=== PATIENT | female | born 1965 | race Caucasian/White ===

== ENCOUNTER → 2016-05-31 | Outpatient (CLI) | payer OTHER ==
--- NOTE | 2016-06-04 08:39 | MM ---
Reason for exam: screening (asymptomatic). Last mammogram was performed 1 year and 4 months ago. History: Patient has history of endometrial cancer at age 24. Benign US right guided mammotome of the right breast, December 22, 2007. Reduction of the left breast, 2002. Reduction of the right breast, 2002. Physical Findings: A clinical breast exam by your physician is recommended on an annual basis and results should be correlated with mammographic findings. MG 3D Screening Mammo W/Cad Bilateral CC and MLO view(s) were taken. Prior study comparison: February 06, 2015, bilateral MG screening mammo w CAD. There are scattered fibroglandular densities. Previous mammotome biopsy within the right breast. No significant changes when compared with prior studies. ASSESSMENT: Benign, BI-RAD 2 RECOMMENDATION: Routine screening mammogram of both breasts in 1 year.
== END | disposition home or self-care (01) ==
LOC: RADMAMWWP 17:02
PROVIDERS: ATTEND Family Medicine
DX: Z12.31 Encounter for screening mammogram for malignant neoplasm of breast (principal)
CPT/HCPCS: 77063; G0202

== ENCOUNTER → 2016-05-31 | Outpatient (CLI) | payer OTHER ==
--- NOTE | 2016-05-31 23:36 | MR ---
EXAMINATION TYPE: MR lumbar spine wo con DATE OF EXAM: 05/31/2016 7:24 PM COMPARISON: 01/03/2015 HISTORY: Pain x3 years TECHNIQUE: T1 and T2 axial and sagittal images of the lumbar spine are submitted. FINDINGS: There is no abnormal signal seen within the visualized spinal cord or paraspinal soft tissu es. 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 Subcentimeter right renal lesion noted for which ultrasound suggested. Vertebral body hemangioma T12 noted. At L1-2 there is no disc herniation or canal stenosis. No foraminal encroachment At L2-3 there is no disc herniation. Mild facet hypertrophy. No foraminal encroachment or canal steno sis. At L3-4 there is mild degenerative disc disease with mild to moderate hypertrophy of the facets and l igamentum flavum. No Canal stenosis. No foraminal encroachment At L4-5 there is moderate degenerative disc disease with hypertrophy of the ligamentum flavum and fac et joints. Broad-based disc protrusion greater paracentrally and laterally to the left results in mod erate canal stenosis. There is bilateral lateral recess stenosis. Mild right foraminal encroachment a nd moderate left foraminal encroachment At L5-S1 there is particularly the facet joints. Minimal central disc bulging with no canal stenosis or foraminal encroachment. No disc herniation. IMPRESSION: 1. Broad-based disc protrusion with hypertrophic changes L4-5 results in bilateral foraminal encroach ment greater on the left. 2. Multilevel facet arthropathy and mild degenerative disc disease with moderate changes at L4-5. 3. Subcentimeter right renal lesion does not appear compatible with simple cyst. Correlate with ultra sound.
== END | disposition home or self-care (01) ==
LOC: RADMRIMAIN 18:27
PROVIDERS: ATTEND Family Medicine
DX: M46.96 Unspecified inflammatory spondylopathy, lumbar region (principal); M51.26 Other intervertebral disc displacement, lumbar region; M51.36 Other intervertebral disc degeneration, lumbar region
CPT/HCPCS: 72148

== ENCOUNTER → 2016-07-01 | Outpatient (CLI) | payer OTHER ==
--- NOTE | 2016-07-02 11:33 | US ---
EXAMINATION TYPE: US kidneys/renal and bladder DATE OF EXAM: 07/01/2016 4:00 PM COMPARISON: MRI 05/31/2016 CLINICAL HISTORY: N28.89 disorders of kidney and ureter. Abnormal finding on MRI EXAM MEASUREMENTS: Right Kidney: 12.4 x 4.5 x 4.5 cm Left Kidney: 9.5 x 4.7 x 5.8 cm Right Kidney: took multiple images of right kidney trying to appreciate 8mm lesion seen on MRI but I am not able to reproduce it. Nothing solid or cystic seen. Left Kidney: wnl Bladder: wnl Bilateral Jets seen: yes There is no evidence for hydronephrosis at this point in time. No nephrolithiasis is seen. No adelita s are identified. The urinary bladder is anechoic. Bilateral ureteral jets are seen. reviewed MRI scan after initial renal survey and went back in to document more images of right arturo lfinal images may have an echogenic area within a slightly hypoechoic area midpole right kidney, ex ample image 38. IMPRESSION: Definite correlation with the abnormality identified on MRI is not evident on the current ultrasound. There is an area at the superior lateral area which potentially could be related but is not well-def ined. Recommend CT with contrast for additional evaluation.
== END | disposition home or self-care (01) ==
LOC: RADUSWWP 15:34
PROVIDERS: ATTEND Family Medicine
DX: N28.89 Other specified disorders of kidney and ureter (principal)
CPT/HCPCS: 76770

== ENCOUNTER → 2016-07-26 | Outpatient (CLI) | payer OTHER ==
[2016-07-25 15:57] VITALS: BMI 29.0
[2016-07-26 14:39] VITALS: BP 138/96; PULSE 81; RESP 16; TEMP 98.6
--- NOTE | 2016-07-26 15:20 | P.CONS ---
History of Present Illness - Reason for Consult Consult date: 07/26/16 - History of Present Illness This is 50 years female with a chronic history of severe low back pain, started more than 3 years ago, he denies any initiating event , she was treated in the past from lumbar epidural steroid injections, and this helped her low back pain to some degree, over the last 3 months she started complaining of different kind of pain that is localized over the left buttock area, but is not radiated to the lower extremity, she denies any numbness or tingling sensation she has no fever or night sweats. 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 COLONOSCOPY. RT LEG VARICOSE VEIN STRIPPING Past Anesthesia/Blood Transfusion Reactions: Motion Sickness, Postoperative Nausea & Vomiting (PONV) Past Psychological History: Anxiety Smoking Status: Never smoker Past Alcohol Use History: Occasional Past Drug Use History: None Reported - Past Family History Father Family Medical History: Deep Vein Thrombosis (DVT) Medications and Allergies Home Medications Medication Instructions Recorded Confirmed Type Ibuprofen [Ibuprofen] 800 mg PO BID PRN 07/25/16 07/25/16 History Losartan/Hydrochlorothiazide 1 each PO DAILY 07/25/16 07/25/16 History [Losartan-Hctz 100-25 mg Tab] Metoprolol Succinate (ER) [Toprol 25 mg PO BID 07/25/16 07/25/16 History Xl] Naproxen Sodium [Aleve] 220 mg PO DAILY PRN 07/25/16 07/25/16 History traMADol HCL [Ultram] 50 mg PO BID PRN 07/25/16 07/26/16 History Allergies Allergy/AdvReac Type Severity Reaction Status Date / Time prochlorperazine Allergy " flat Verified 07/25/16 15:47 [From Compazine] lined" per pt Physical Exam Vitals: Vital Signs Temp Pulse Resp BP Pulse Ox 07/26/16 14:31 98.6 F 81 16 138/96 97 Social history : not smoker , NO ETOH , NO Illegal drugs use . Review of Systems : 1- Constitutional : no chills , no fever , no night sweats , 2- Ears : no ear discharge , no change in hearing 3-Nose, Mouth ,Throat ; no bleeding gums, no sore throat , no epistaxis , 4-Cardiovascular : Denies chest pain, , no orthopnea , no palpitation 5-Respiratory : Denies cough , no dyspnea , no hemoptysis 6-Gastrointestinal :, no change in bowel habits , no coffee- ground emesis . 7-Genitourinary : No hematuria , no discharge , no incontinence, 8-Musculoskeletal : No gait dysfunction , report low back pain , 9- Neurological : no ataxia , no tremor , no sezure , 10-Psychatric , no suicidal ideation no hallucination 11- Endocrine : no cold intolerence , no polyuria , no polydypsia , 12-Hematologic : no easy bleeding , no easy brusing , 13-Allergic / immunology : no angioedema , no wheezing ,no allergic rhinitis 14-Integumentary : no brttle nails , no change hair / nails , no foot/leg ulcers . Physical Examinations : 1-Constitutional : Cooperative , not in acute distress . 2-HEENT : nech ; supple , no Lymphadenopathy , no Thyromegaly , :eyes , no icterus, no photophobia . ENT : , normal oropharynx , no Thrush 3- Respiratory : Chest clear to auscultations Bilaterally , no wheezing . 4- Cardiovascular : regular rate and rhythem , S1 , S2 , no S3 , no S4. 5- Gastrointestinal: abdomen soft no tenderness , no organomegally . 6- Genitourinary : Defferred . 7-Integumentary : No cellulitis , no ulcers , normal skin turgor , no cyanotic . 8- neurologic : Cranial nerve II to XII intact , no focal neurological deffecit 9-psychatric : alert , oriented X 3 , appropriate affect , intact judgment and insight . 10-Lymphatic : no Lymphadenopathy. 11- musculoskeltal: normal gait Lumber spine moter stegnth lower extremities ,thigh and legs 5/5 Right side , 5/5 Left side deep tendon reflexes : normal Knee Jerk , normal ankle Jerk Negative lumber facet Loading Test Range of motion of the lumbar spine Flexion 60 degrees, extension 30 degrees strait leg raising test negative bilaterally Fabere test negative bilaterally. NO tenderness over the Sacroiliac joint on the R and L sides Normal sensation in the upper extremity bilaterally. Mild tenderness over the iliac crest on the left side Results Labs: MRI of the lumbar spine done 05/31/2016= L2-3 facet arthropathy L3 4 degenerative disc disease and facet joint hypertrophy, L4-L5 lumbar degenerative disc disease with facet joint hypertrophy and disc protrusion, L5- S1 facet joint hypertrophy Assessment and Plan Plan: Assessment and plan= 1-Cluneal Nerve entrapment . 2-lumbar degenerative disc disease. 3-lumbar spondylosis with facet arthropathy. Patient could benefit from cluneal nerve block under fluoroscopy guidance, also patient could benefit from voltaren 1% gel to be applied Over the left buttock area, so patient should continue her medication Ultram and Motrin as directed by her primary care Time with Patient: Greater than 30
== END | disposition home or self-care (01) ==
LOC: PNWHC3 14:01
PROVIDERS: ATTEND Specialist
DX: M51.06 Intervertebral disc disorders with myelopathy, lumbar region (principal); M47.16 Other spondylosis with myelopathy, lumbar region; I10 Essential (primary) hypertension; Z79.1 Long term (current) use of non-steroidal anti-inflammatories (NSAID); Z79.899 Other long term (current) drug therapy; Z88.8 Allergy status to other drugs, medicaments and biological substances
CPT/HCPCS: 99211

== ENCOUNTER → 2016-11-09 | Outpatient (CLI) | payer OTHER ==
[2016-11-09 11:53] LABS: Anisocytosis Slight; Basophils % (A) 1 %; CH 27.1; CHCM 30.9; Eosinophils # (A) 0.1 k/uL (0-0.7); Eosinophils % (A) 2 %; HCT 47.5 % (34.0-46.0); HDW 2.63; HGB 15.5 gm/dL (11.4-16.0); Hypochromasia Slight; Luc % (Auto) 3; Lymphocytes # (A) 1.9 k/uL (1.0-4.8); Lymphocytes % (A) 25 %; MCH 28.6 pg (25.0-35.0); MCHC 32.6 g/dL (31.0-37.0); MCV 87.8 fL (80.0-100.0); Monocytes # (A) 0.6 k/uL (0-1.0); Monocytes % (A) 7 %; Neutrophils # (A) 4.9 k/uL (1.3-7.7); Neutrophils % (A) 64 %; RBC 5.41 m/uL (3.80-5.40); RDW 17.3 % (11.5-15.5); WBC 7.7 k/uL (3.8-10.6)
== END | disposition home or self-care (01) ==
LOC: LABPAT 11:24
PROVIDERS: ATTEND Obstetrics & Gynecology
DX: Z01.810 Encounter for preprocedural cardiovascular examination (principal); Z01.812 Encounter for preprocedural laboratory examination; I10 Essential (primary) hypertension; N92.0 Excessive and frequent menstruation with regular cycle; N84.0 Polyp of corpus uteri
CPT/HCPCS: 85025; 93005

== ENCOUNTER → 2016-11-21 | Outpatient (CLI) | payer OTHER ==
[2016-11-21 15:11] VITALS: BP 139/93; PULSE 105; RESP 16; TEMP 98.5
--- NOTE | 2016-11-21 15:33 | P.CONS ---
History of Present Illness - Reason for Consult Consult date: 11/21/16 - History of Present Illness This is a follow-up visit for this 51 years old female, chronic history of severe low back pain she was diagnosed with the cluneal nerve entrapment/lumbar degenerative disc disease/lumbar spondylosis, currently patient complaining of severe low back pain mainly left side with occasional radiation to the right side of the low back area, she denies any motor or sensory deficit she denies any fever or night sweats and she has no numbness or tingling sensation, the pain is constant and increases with any movement, currently taking pain medication which helped to a minimal degree, 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 COLONOSCOPY, EGD. RT LEG VARICOSE VEIN STRIPPING Past Anesthesia/Blood Transfusion Reactions: Motion Sickness, Postoperative Nausea & Vomiting (PONV) Past Psychological History: Depression Smoking Status: Never smoker Past Alcohol Use History: Rare Past Drug Use History: None Reported - Past Family History Father Family Medical History: Deep Vein Thrombosis (DVT) Mother Family Medical History: Cancer, Deep Vein Thrombosis (DVT) Medications and Allergies Home Medications Medication Instructions Recorded Confirmed Type Losartan/Hydrochlorothiazide 1 each PO DAILY 07/25/16 11/21/16 History [Losartan-Hctz 100-25 mg Tab] Metoprolol Succinate (ER) [Toprol 25 mg PO BID 07/25/16 11/21/16 History Xl] traMADol HCL [Ultram] 50 mg PO DAILY 07/25/16 11/21/16 History Diclofenac Sodium Gel [Voltaren 2 gm TOPICAL QID #120 tube 07/26/16 11/21/16 Rx Gel] Magnesium Oxide [Mag-Ox] 250 mg PO HS PRN 08/27/16 11/21/16 History Ferrous Sulfate [Feosol] 325 mg PO DAILY 11/14/16 11/21/16 History traZODone HCL 50 mg PO HS 11/14/16 11/21/16 History Allergies Allergy/AdvReac Type Severity Reaction Status Date / Time prochlorperazine Allergy " flat Verified 11/21/16 14:59 [From Compazine] lined" per pt Physical Exam Vitals: Vital Signs Temp Pulse Resp BP 11/21/16 15:02 98.5 F 105 H 16 139/93 Intake and Output 11/21/16 11/21/16 11/21/16 06:59 14:59 22:59 Other: Weight 77.111 kg Patient Weight 11/22/16 06:59 Weight 77.111 kg Physical Examinations : 1-Constitutiona : Cooperative , not in acute distress . 2-HEENT : nech ; supple , no Lymphadenopathy , normal thyroid size . eyes : no ptosis , no icterus, no photophobia . ENT : normal of hearing , normal oropharynx , no Thrush . 3- Respiratory : Chest clear to auscultations Bilaterally , no wheezing , no Rhonchi . 4- Cardiovascular : regular rate and rhythem , S1 , S2 , no S3 , no S4. 5- Gastrointestinal : abdomen soft no tenderness , bowel sounds positive all four quadrents , no organomegally . 6- Genitourinary : Defferred . 7- neurologic : Cranial nerve II to XII intact , no focal neurological deffecit . 8-psychatric : alert , oriented X 3 , appropriate affect , intact judgment and insight . 9-Lymphatic : no Lymphadenopathy . 10- musculoskeltal : , Lumber spine = normal moter stegnth lower extremities ,thigh and legs .5/5 deep tendon reflexes : normal Knee Jerk , normal ankle Jerk . lumber facet Loading Test negative strait leg raising test negative bilaterally Fabere test negative bilaterally Sever tenderness over the Sacroiliac joint on the Right , and Left side Assessment and Plan Plan: Assessment and plan= chronic low back pain secondary to lumbar degenerative disc disease , lumbar spondylosis with lumbar facet arthropathy Currently patient having a new kind of pain mostly secondary to sacroiliitis, she could benefit from bilateral sacroiliac joint steroid injection , procedure risk and benefits and alternatives discussed with the patient she agreed with the preceding Time with Patient: Less than 30
== END ==
LOC: PNWHC3 14:32
PROVIDERS: ATTEND Specialist
DX: M51.36 Other intervertebral disc degeneration, lumbar region (principal); M47.816 Spondylosis without myelopathy or radiculopathy, lumbar region; M46.86 Other specified inflammatory spondylopathies, lumbar region; M53.3 Sacrococcygeal disorders, not elsewhere classified; I10 Essential (primary) hypertension; Z79.899 Other long term (current) drug therapy; Z88.8 Allergy status to other drugs, medicaments and biological substances
CPT/HCPCS: 99211

== ENCOUNTER → 2017-09-18 | Outpatient (CLI) | payer BC ==
--- NOTE | 2017-09-19 09:07 | ECHOF ---
Referral Reason:R01.1 Cardiac murmur, unspecified MEASUREMENTS -------- HEIGHT: 170.2 cm WEIGHT: 86.2 kg BP: 121/82 RVIDd: 3.0 cm (< 3.3) IVSd: 1.1 cm (0.6 - 1.1) LVIDd: 4.1 cm (3.9 - 5.3) LVPWd: 0.9 cm (0.6 - 1.1) IVSs: 1.6 cm LVIDs: 2.6 cm LVPWs: 1.4 cm LA Diam: 3.2 cm (2.7 - 3.8) LAESV Index (A-L): 15.94 ml/m Ao Diam: 3.2 cm (2.0 - 3.7) AV Cusp: 2.0 cm (1.5 - 2.6) MV EXCURSION: 14.577 mm (> 18.000) MV EF SLOPE: 44 mm/s (70 - 150) EPSS: 0.7 cm MV E Forrest: 0.77 m/s MV DecT: 319 ms MV A Forrest: 0.98 m/s MV E/A Ratio: 0.78 RAP: 5.00 mmHg RVSP: 27.49 mmHg FINDINGS -------- Sinus rhythm. This was a technically good study. The left ventricular size is normal. Left ventricular wall thickness is normal. Overall left vent ricular systolic function is normal with, an EF between 60 - 65 %. The right ventricle is normal in size. Normal LA size by volume 22+/-6 ml/m2. The right atrium is normal in size. The aortic valve is trileaflet and appears structurally normal. The mitral valve is normal. Mild tricuspid regurgitation present. Right ventricular systolic pressure is normal at < 35 mmHg. Trace/mild (physiologic) pulmonic regurgitation. The aortic root size is normal. Normal inferior vena cava with normal inspiratory collapse consistent with estimated right atrial pre ssure of 5 mmHg. There is no pericardial effusion. CONCLUSIONS -------- 1. Sinus rhythm. 2. This was a technically good study. 3. The left ventricular size is normal. 4. Left ventricular wall thickness is normal. 5. Overall left ventricular systolic function is normal with, an EF between 60 - 65 %. 6. The right ventricle is normal in size. 7. Normal LA size by volume 22+/-6 ml/m2. 8. The right atrium is normal in size. 9. The aortic valve is trileaflet and appears structurally normal. 10. The mitral valve is normal. 11. Mild tricuspid regurgitation present. 12. Right ventricular systolic pressure is normal at < 35 mmHg. 13. Trace/mild (physiologic) pulmonic regurgitation. 14. The aortic root size is normal. 15. Normal inferior vena cava with normal inspiratory collapse consistent with estimated right atrial pressure of 5 mmHg. 16. There is no pericardial effusion. CERTIFIED MEDICAL TRANSCRIPTIONIST: Chloe Way RDCS
== END | disposition home or self-care (01) ==
LOC: RADECHMAIN 14:59
PROVIDERS: ATTEND Family Medicine
DX: I07.1 Rheumatic tricuspid insufficiency (principal)
CPT/HCPCS: 93306

== ENCOUNTER → 2017-11-11 | Outpatient (CLI) | payer BC ==
--- NOTE | 2017-11-12 09:08 | MM ---
Reason for exam: screening (asymptomatic). Last mammogram was performed 1 year and 5 months ago. History: Patient has history of endometrial cancer at age 24. Benign US right guided mammotome of the right breast, December 22, 2007. Reduction of the left breast, 2002. Reduction of the right breast, 2002. Physical Findings: A clinical breast exam by your physician is recommended on an annual basis and results should be correlated with mammographic findings. MG 3D Screening Mammo W/Cad Bilateral CC and MLO view(s) were taken. Prior study comparison: May 31, 2016, bilateral MG 3d screening mammo w/cad. February 06, 2015, bilateral MG screening mammo w CAD. The breast tissue is heterogeneously dense. This may lower the sensitivity of mammography. There is no discrete abnormality. No significant changes when compared with prior studies. ASSESSMENT: Negative, BI-RAD 1 RECOMMENDATION: Routine screening mammogram of both breasts in 1 year.
== END | disposition home or self-care (01) ==
LOC: RADMAMWWP 16:31
PROVIDERS: ATTEND Family Medicine
DX: Z12.31 Encounter for screening mammogram for malignant neoplasm of breast (principal)
CPT/HCPCS: 77063; 77067

== ENCOUNTER → 2018-04-30 | Outpatient (CLI) | payer BC ==
--- NOTE | 2018-04-30 18:02 | CONS ---
CONSULTATION DATE OF SERVICE: 04/30/2018 52-year-old lady has been evaluated in [facility] for difficulties to initiating sleep, multiple awakenings from sleep and feeling tired and sleepy during the day. HISTORY OF PRESENT ILLNESS SLEEP WAKE EVALUATION: Patient her symptoms after she increased her weight around 15 pounds for the last year. She started to snore and have more awakenings from sleep. SLEEP SCHEDULE: Presently her sleep schedule from 9 to 9:30 p.m. to 5 a.m. on weekdays and from 10 p.m. to 8 a.m. on weekends. FALLING ASLEEP: Sometimes she has problems with falling asleep. Presently she is on treatment with trazodone and magnesium at night and with this regimen she is able to sleep easier, but she still wakes up from sleep 3 times with 2 episodes of nocturia. She has TV set in bedroom. DURING SLEEP: She usually sleeps on the side position. She may start to see her dreams right away after closing her eyes. No history of sleep paralysis or cataplexy. Usually patient does not take naps because no time but if she has time she may take naps. DURING THE DAY/SLEEP WAKE EVALUATION: In the morning she wakes up tired. Worries about her sleep, has episodes of irritability and depression. Rising [place] Sleepiness Scale is 6. PAST MEDICAL HISTORY: Positive for hypertension, acid reflux, hyperlipidemia. PAST SURGICAL HISTORY: Breast reduction surgery, tubal ligation. Uterus ablation for the bleeding, vein surgery on the legs. MEDICATIONS: Metoprolol, losartan, hydrochlorothiazide, pantoprazole, Centrum Silver, pravastatin, trazodone, magnesium supplement. SOCIAL HISTORY: Negative for smoking. Alcohol consumption rarely. FAMILY HISTORY: Hypertension, hyperlipidemia, epilepsy, stroke, arthritis, snoring, acid reflux, restless legs. REVIEW OF SYSTEMS: Difficulties to initiate sleep. Multiple awakenings from sleep, tiredness and sleepiness during the day. PHYSICAL EXAM: lady without distress. BP 122/87, HR 87, RR 16, height 5 feet 6 inches, weight 201.8 pounds, body mass index 32.4, temperature 98.9, oxygen saturation at room air 96%. Oropharynx showed extremely low position of soft palate. Mallampati 4. Wide neck 16-1/4 inches in circumference. Retrognathia 2-3 mm. Neck Supple, no JVD. Thyroid is not palpable. LUNGS Clear to percussion and to auscultation. Good air exchange. No wheezing or rhonchi. HEART S1, S2 regular. No murmurs, gallops, or rubs. ABDOMEN: Slightly obese. Soft and nontender. Bowel sounds are present. No organomegaly appreciated. EXTREMITIES No clubbing or cyanosis. ELECTROCARDIOGRAM TECHNICIAN Awake, alert, and oriented X3. Cranial nerves 2 to 7 intact. There is no fasciculation or atrophy. noted. No focal deficits observed. IMPRESSION: 1. Snoring, multiple awakenings from sleep, extremely low position of soft palate, wide neck, feeling tired and sleepy during the day. Obstructive sleep apnea- hypopnea syndrome. 2. Mild obesity, body mass index 32.4. 3. Hypertension. 4. Acid reflux. 5. Hyperlipidemia. 6. Status post breast reduction. 7. Status post tubal ligation. 8. Status post venous surgery on the right leg. 9. Status post uterus ablation for the bleeding. PLAN: 1. Home sleep apnea test for evaluation of patient's breathing during sleep. 2. If home sleep apnea test will be negative, polysomnogram with the following multiple sleep latency test for objective evaluation of patient's symptoms of excessive daytime sleepiness. 3. Preferable position during sleep on the side. 4. No driving if patient feels any sleepiness. 5. I will see patient for follow up visit to explain results of testing and following plan. Thank you very much for this patient for consultation. Sincerely, Vitaliy Avalos MD, PhD, FAASM Diplomat of [place] [employer] [place] [employer] [facility] [place] MMODL / RANDALLN: [id number] /
== END | disposition home or self-care (01) ==
LOC: SLEEP 15:00
PROVIDERS: ATTEND Internal Medicine
DX: G47.33 Obstructive sleep apnea (adult) (pediatric) (principal); E66.9 Obesity, unspecified; I10 Essential (primary) hypertension; K21.9 Gastro-esophageal reflux disease without esophagitis; E78.5 Hyperlipidemia, unspecified; Z68.32 Body mass index [BMI] 32.0-32.9, adult; Z98.51 Tubal ligation status; Z98.890 Other specified postprocedural states; Z79.899 Other long term (current) drug therapy
CPT/HCPCS: 99211

== ENCOUNTER → 2019-01-21 | Outpatient (CLI) | payer BC ==
--- NOTE | 2019-01-21 11:56 | ECHOF ---
Referral Reason:R01.1 undiagnosed cardiac murmurs MEASUREMENTS -------- HEIGHT: 170.2 cm WEIGHT: 83.9 kg BP: RVIDd: 2.8 cm (< 3.3) IVSd: 1.2 cm (0.6 - 1.1) LVIDd: 3.6 cm (3.9 - 5.3) LVPWd: 1.2 cm (0.6 - 1.1) IVSs: 2.0 cm LVIDs: 1.4 cm LVPWs: 1.8 cm LAESV Index (A-L): 19.13 ml/m Ao Diam: 3.0 cm (2.0 - 3.7) AV Cusp: 1.9 cm (1.5 - 2.6) LA Diam: 2.6 cm (2.7 - 3.8) MV EXCURSION: 17.701 mm (> 18.000) MV EF SLOPE: 59 mm/s (70 - 150) EPSS: 0.6 cm MV E Forrest: 0.52 m/s MV DecT: 238 ms MV A Forrest: 0.81 m/s MV E/A Ratio: 0.63 AR PHT: 136 ms RAP: 5.00 mmHg RVSP: 21.17 mmHg TAPSE: 19.09 mm FINDINGS -------- Sinus rhythm. This was a technically good study. The left ventricular size is normal. There is mild concentric left ventricular hypertrophy. Overa ll left ventricular systolic function is normal with, an EF between 55 - 60 %. The diastolic fillin g pattern is normal for the age of the patient 8.31. The right ventricle is normal in size. The right ventricular systolic function is normal. The left atrial size is normal. Normal LA size by volume 22+/-6 ml/m2. The right atrial size is normal. The aortic valve is trileaflet and appears structurally normal. Trace amount of aortic regurgitatio n. The mitral valve is normal. There is trace mitral regurgitation. The tricuspid valve appears structurally normal. Mild tricuspid regurgitation present. Right vent ricular systolic pressure is normal at < 35 mmHg. There is no pulmonic regurgitation present. The aortic root size is normal. Normal inferior vena cava with normal inspiratory collapse consistent with estimated right atrial pre ssure of 5 mmHg. There is no pericardial effusion. CONCLUSIONS -------- 1. Sinus rhythm. 2. This was a technically good study. 3. The left ventricular size is normal. 4. There is mild concentric left ventricular hypertrophy. 5. Overall left ventricular systolic function is normal with, an EF between 55 - 60 %. 6. The diastolic filling pattern is normal for the age of the patient 8.31 7. The right ventricle is normal in size. 8. The right ventricular systolic function is normal. 9. The left atrial size is normal. 10. Normal LA size by volume 22+/-6 ml/m2. 11. The right atrial size is normal. 12. The aortic valve is trileaflet and appears structurally normal. 13. Trace amount of aortic regurgitation. 14. The mitral valve is normal. 15. There is trace mitral regurgitation. 16. The tricuspid valve appears structurally normal. 17. Mild tricuspid regurgitation present. 18. Right ventricular systolic pressure is normal at < 35 mmHg. 19. There is no pulmonic regurgitation present. 20. The aortic root size is normal. 21. Normal inferior vena cava with normal inspiratory collapse consistent with estimated right atrial pressure of 5 mmHg. 22. There is no pericardial effusion. LOGGING TRACTOR OPERATOR: Ana Chan, [facility]
== END | disposition home or self-care (01) ==
LOC: RADECHMAIN 11:27
PROVIDERS: ATTEND Family Medicine
DX: I07.1 Rheumatic tricuspid insufficiency (principal); Z88.8 Allergy status to other drugs, medicaments and biological substances
CPT/HCPCS: 93306

== ENCOUNTER → 2019-02-02 | Outpatient (CLI) | payer BC ==
--- NOTE | 2019-02-03 13:17 | MM ---
Reason for exam: screening (asymptomatic). Last mammogram was performed 1 year and 3 months ago. History: Patient has history of endometrial cancer at age 24. Benign US right guided mammotome of the right breast, December 22, 2007. Reduction of the left breast, 2002. Reduction of the right breast, 2002. Took hormonal contraceptives for 10 years. Physical Findings: A clinical breast exam by your physician is recommended on an annual basis and results should be correlated with mammographic findings. MG 3D Screening Mammo W/Cad Bilateral CC and MLO view(s) were taken. Prior study comparison: November 11, 2017, bilateral MG 3d screening mammo w/cad. May 31, 2016, bilateral MG 3d screening mammo w/cad. The breast tissue is heterogeneously dense. This may lower the sensitivity of mammography. No suspicious abnormality. Right biopsy marker noted. No significant changes when compared with prior studies. ASSESSMENT: Negative, BI-RAD 1 RECOMMENDATION: Routine screening mammogram of both breasts in 1 year.
== END | disposition home or self-care (01) ==
LOC: RADMAMWWP 07:54
PROVIDERS: ATTEND Family Medicine
DX: Z12.31 Encounter for screening mammogram for malignant neoplasm of breast (principal); Z98.890 Other specified postprocedural states
CPT/HCPCS: 77063; 77067

== ENCOUNTER → 2019-07-26 | Outpatient (CLI) | payer BC ==
--- NOTE | 2019-07-26 11:52 | US ---
EXAMINATION TYPE: US abdomen limited DATE OF EXAM: 07/26/2019 COMPARISON: NONE CLINICAL HISTORY: R19.04 abdominal lump. Lump in LLQ of abdomen. TECHNIQUE/FINDINGS: Targeted grayscale imaging was performed of the patient's area of concern. No zenaida id or cystic mass seen. No discontinuity in the abdominal wall to suggest hernia sonographically alth ough Valsalva was not utilized IMPRESSION: No sonographic abnormality to correspond to the patient's left lower quadrant area of pa in. CT abdomen pelvis with BB marker over the palpable abnormality is recommended for further evaluat ion.
== END | disposition home or self-care (01) ==
LOC: RADUSWWP 11:24
PROVIDERS: ATTEND Family Medicine
DX: R19.04 Left lower quadrant abdominal swelling, mass and lump (principal)
CPT/HCPCS: 76705

== ENCOUNTER → 2019-08-13 | Outpatient (CLI) | payer BC ==
--- NOTE | 2019-08-13 10:50 | CT ---
EXAMINATION TYPE: CT abdomen pelvis wo con DATE OF EXAM: 08/13/2019 COMPARISON: None HISTORY: Generalized pain. CT DLP: 682.6 mGycm Examination of the solid and hollow viscera is limited given the lack of contrast. FINDINGS: LUNG BASES: No evidence for nodule. No evidence for infiltrate. LIVER/GB: The gallbladder is unremarkable. No space-occupying hepatic lesion. PANCREAS: No pancreatic mass identified. No inflammatory process seen. SPLEEN: No evidence for splenomegaly. No intrasplenic lesions seen. ADRENALS: No adrenal nodules identified. No evidence for thickening. KIDNEYS: No evidence for renal mass. No nephrolithiasis. Focal parenchymal calcification midpole righ t kidney. No hydronephrosis. BOWEL: Appendix has a normal appearance. No evidence of bowel obstruction. No inflammatory process. Lymph nodes: No evidence for adenopathy greater than 1 cm. Abdominal aorta: Atheromatous changes seen. No evidence for aneurysm. Genital organs: There is heterogeneity and bulkiness of the uterine fundus. Consider ultrasound corre lation. No adnexal masses seen. No free fluid evident. Other: No significant abnormality. IMPRESSION: There is heterogeneity and bulkiness of the uterine fundus. Consider ultrasound correlation. No adnex al masses seen.
== END | disposition home or self-care (01) ==
LOC: RADCTMAIN 08:34
PROVIDERS: ATTEND Family Medicine
DX: N85.2 Hypertrophy of uterus (principal); R19.00 Intra-abdominal and pelvic swelling, mass and lump, unspecified site
CPT/HCPCS: 74176

== ENCOUNTER → 2019-08-20 | Outpatient (CLI) | payer BC ==
--- NOTE | 2019-08-20 10:35 | US ---
EXAMINATION TYPE: US transvaginal DATE OF EXAM: 08/20/2019 COMPARISON: CT 08/13/2019 CLINICAL HISTORY: R19.09 Other intra-abdominal and pelvic. Recent CT showed possible fibroids, ablati on 2017 TECHNIQUE: TV. Transvaginal sonographic images, patient was unable to fill her bladder prior to exa m due to GI upset Date of LMP: 2017 EXAM MEASUREMENTS: Uterus: 9.9 x 6.3 x 5.7 cm Endometrial Stripe: undiscernible Right Ovary: not seen Left Ovary: not seen 1. Uterus: Anteverted heterogeneous, bulky UT with 2.6cm anterior fibroid seen, unable to discern additional fibroids 2. Endometrium: not seen due to heterogeneous UT and h/o ablation 3. Right Ovary: not seen due to bowel gas 4. Left Ovary: not seen due to bowel gas 5. Bilateral Adnexa: wnl 6. Posterior cul-de-sac: wnl IMPRESSION: Fibroid uterus, ovaries are not visualized
== END | disposition home or self-care (01) ==
LOC: RADUSWWP 08:54
PROVIDERS: ATTEND Family Medicine
DX: R19.09 Other intra-abdominal and pelvic swelling, mass and lump (principal)
CPT/HCPCS: 76830

== ENCOUNTER → 2019-09-10 | Outpatient (CLI) | payer BC ==
--- NOTE | 2019-09-10 13:12 | XR ---
EXAM TYPE: LUMBAR SPINE X RAY SERIES COMPARISON: NONE HISTORY: Low back pain TECHNIQUE: 7 views are submitted including flexion-extension views. FINDINGS: Alignment is anatomic. The pedicles are intact. The transverse processes are intact. There is no s pondylolysis or spondylolisthesis. Multilevel moderate degenerative disc disease extending from L2 t hrough S1 and severe changes at L4-5 and L5-S1. Vascular calcifications are seen. No facet arthropath y L5-S1. Alignment. Appears stable on flexion and extension. IMPRESSION: 1. Multilevel degenerative disc disease most marked at L4-5 and L5-S1.
== END | disposition home or self-care (01) ==
LOC: RADXRMAIN 11:28
PROVIDERS: ATTEND Neurological Surgery
DX: M51.16 Intervertebral disc disorders with radiculopathy, lumbar region (principal); M51.17 Intervertebral disc disorders with radiculopathy, lumbosacral region
CPT/HCPCS: 72114

== ENCOUNTER → 2019-10-08 | Outpatient (CLI) | payer BC ==
--- NOTE | 2019-10-08 16:06 | MR ---
EXAMINATION TYPE: MR lumbar spine wo con DATE OF EXAM: 10/08/2019 COMPARISON: MRI lumbar spine 05/31/2016 HISTORY: Spondylolisthesis TECHNIQUE: Multiplanar, multisequence images of the lumbar spine were acquired. Spinal alignment is normal. Vertebral body heights are preserved. Vertebral bone marrow is normal in signal. T12 vertebral body hemangioma. S2 Tarlov cyst. Multilevel degenerative disc disease, as described by level below. Multilevel disc desiccation. Lower thoracic cord is normal in signal. Conus terminates normally at L1-L2. Cauda equina nerve roots are normal in course and caliber. Paraspinal soft tissues are unremarkable. Visualized upper sacroiliac joints appear intact. T12-L1: No disc bulging. No canal stenosis. Foramina are patent bilaterally. L1-L2: Minimal posterior disc bulging. No canal stenosis. Foramina are patent bilaterally. L2-L3: Minimal posterior disc bulging with effacement of the ventral aspect of the thecal sac. No can al stenosis. Foramina are patent bilaterally. L3-L4: Mild posterior disc bulging effaces the thecal sac. Facet arthropathy. Mild canal stenosis. Fo ramina are patent bilaterally. L4-L5: Moderate posterior disc bulging, ligamentum flavum hypertrophy, and facet arthropathy. Moderat e canal stenosis. Foramina are mildly narrowed on the right and severely narrowed on the left. L5-S1: Mild posterior disc bulging and facet arthropathy. No canal stenosis. Foramina are mildly narr owed bilaterally. There is a 9 mm lesion of the right interpolar kidney posteriorly which is incompletely evaluated, T1 hypointense and mildly T2 hyperintense with peripheral T2 hypointense rim. This lesion corresponds t o an area of calcification seen on 08/13/2019 CT comparison (3:37). IMPRESSION: 1. Multilevel degenerative disc disease and facet arthropathy contribute to varying degrees of canal stenosis and neural foramina narrowing. There is moderate canal stenosis at L4-L5, which is increase d versus 2017 MRI comparison. 2. Right renal 9 mm T2 hyperintense lesion with calcified rim, similar to 2017 MRI comparison. This area corresponds to calcification seen on 08/13/[address] Differential includes neoplasm an d calcified nonsimple cyst. Recommend workup with enhanced CT renal mass protocol.
== END | disposition home or self-care (01) ==
LOC: RADMRIMAIN 10:33
PROVIDERS: ATTEND Neurological Surgery
DX: M48.061 Spinal stenosis, lumbar region without neurogenic claudication (principal); M51.36 Other intervertebral disc degeneration, lumbar region; M43.16 Spondylolisthesis, lumbar region; M46.1 Sacroiliitis, not elsewhere classified; M51.16 Intervertebral disc disorders with radiculopathy, lumbar region; M47.896 Other spondylosis, lumbar region
CPT/HCPCS: 72148

== ENCOUNTER → 2020-08-22 | Outpatient (CLI) | payer BC | END | disposition home or self-care (01) | LOC: RADMAMWWP 07:18 | PROVIDERS: ATTEND Family Medicine ==

== ENCOUNTER → 2020-09-22 | Outpatient (CLI) | payer BC | END | disposition home or self-care (01) | LOC: LABWHC1 07:18 | PROVIDERS: ATTEND Obstetrics & Gynecology | DX: Z12.31 Encounter for screening mammogram for malignant neoplasm of breast (principal) | CPT/HCPCS: 77063; 77067 ==

== ENCOUNTER → 2020-10-13 | Outpatient (CLI) | payer BC ==
--- NOTE | 2020-10-16 09:13 | USB ---
Reason for exam: additional evaluation requested from abnormal screening. History: Patient has history of endometrial cancer at age 24. Benign US right guided mammotome of the right breast, December 22, 2007. Reduction of the left breast, 2002. Reduction of the right breast, 2002. Took hormonal contraceptives for 10 years. Physical Findings: Nurse did not find any significant physical abnormalities on exam. US Breast Workup Limited RT Right limited breast ultrasound including focal area of concern, retroareolar and axilla demonstrates no cystic or solid lesion seen. These results were verbally communicated with the patient and result sheet given to the patient on 10/13/20. ASSESSMENT: Probably benign, BI-RAD 3 RECOMMENDATION: Follow-up diagnostic mammogram of the right breast in 6 months.
== END | disposition home or self-care (01) ==
LOC: RADUSWWP 08:18
PROVIDERS: ATTEND Obstetrics & Gynecology
DX: R92.8 Other abnormal and inconclusive findings on diagnostic imaging of breast (principal); Z85.42 Personal history of malignant neoplasm of other parts of uterus; Z79.3 Long term (current) use of hormonal contraceptives

== ENCOUNTER → 2020-10-20 | Outpatient (CLI) | payer BC ==
[2020-10-20 08:44] LABS: Basophils # (A) 0.1 k/uL (0-0.2); Basophils % (A) 1 %; Eosinophils # (A) 0.2 k/uL (0-0.7); Eosinophils % (A) 3 %; HCT 49.9 % (34.0-46.0); HGB 16.2 gm/dL (11.4-16.0); Lymphocytes # (A) 1.6 k/uL (1.0-4.8); Lymphocytes % (A) 26 %; MCH 30.1 pg (25.0-35.0); MCHC 32.4 g/dL (31.0-37.0); MCV 92.8 fL (80.0-100.0); Mean Platelet Volume 7.3; Monocytes # (A) 0.4 k/uL (0-1.0); Monocytes % (A) 6 %; Neutrophils # (A) 3.9 k/uL (1.3-7.7); Neutrophils % (A) 62 %; Platelet Count 226 k/uL (150-450); RBC 5.37 m/uL (3.80-5.40); RDW 14.1 % (11.5-15.5); WBC 6.3 k/uL (3.8-10.6)
[2020-10-20 09:01] LABS: African American GFR (CKD) >90 (>60 ml/min/1.73 sqM); Anion Gap 9 mmol/L; Blood Urea Nitrogen 18 mg/dL (7-17); Carbon Dioxide 25 mmol/L (22-30); Chloride 106 mmol/L (98-107); Glucose 103 mg/dL (74-99); Non-African American GFR(CKD) 82 (>60 ml/min/1.73 sqM); Potassium 4.5 mmol/L (3.5-5.1); Sodium 140 mmol/L (137-145)
== END | disposition home or self-care (01) ==
LOC: LABPAT 08:06
PROVIDERS: ATTEND Obstetrics & Gynecology
DX: Z01.818 Encounter for other preprocedural examination (principal); N81.4 Uterovaginal prolapse, unspecified; I10 Essential (primary) hypertension
CPT/HCPCS: 36415; 80051; 82565; 82947; 84520; 85025; 87086; 93005

== ENCOUNTER 2020-10-30 07:24 | Day surgery (SDC) | payer BC ==
[2020-10-24 14:51] VITALS: BMI 29.7
[~2020-10-30 07:24] MED LIST: DEXAMETHASONE SOD PHOSPHATE 4 MG/ML 1 ML VIAL IV ONE; HYDROmorphone 0.5 MG/0.5 ML SYRINGE IVP PRN; LACTATED RINGERS 1,000 ML IV SCH; ONDANSETRON 4 MG/2 ML VIAL IVP ONE
[2020-10-30] MEDS ORDERED: SCOPOLAMINE 1.5MG/72HR PATCH TRANSDERM ONE (08:14)
[2020-10-30] MEDS ORDERED: MIDAZOLAM 2 MG/2 ML VIAL IV ONE (08:26)
[2020-10-30] MEDS ORDERED: LIDOCAINE 1% INJ 10MG/ML (20 ML MDV) ONE (08:43)
[2020-10-30] MEDS ORDERED: PROPOFOL 10 MG/ML 20 ML VIAL IV ONE (08:43)
[2020-10-30] MEDS ORDERED: MIDAZOLAM 2 MG/2 ML VIAL ONE (08:43)
[2020-10-30] MEDS ORDERED: MORPHINE SULFATE (PF) 0.3 MG/0.3 ML SYR ONE (08:43)
[2020-10-30] MEDS ORDERED: diphenhydrAMINE 50 MG/ML 1 ML VIAL ONE (08:43)
[2020-10-30] MEDS ORDERED: fentaNYL (PF) 50 MCG/ML 2 ML AMP ONE (08:43)
[2020-10-30] MEDS ORDERED: SUCCINYLCHOLINE CHLORIDE 100 MG/5 ML SYR IV ONE (08:43)
[2020-10-30] MEDS ORDERED: VASOPRESSIN 20 UNIT/ML 1 ML VIAL SQ ONE ×2 (09:02)
[2020-10-30] MEDS ORDERED: BACITRACIN ZINC 500 UNIT/GM OINT 28.4 GM TUBE TOPICAL ONE ×2 (09:08→09:37)
[2020-10-30] MEDS ORDERED: LACTATED RINGERS 1,000 ML IV ONE (09:49)
--- NOTE | 2020-10-30 10:09 | P.OP ---
Date of Procedure: 10/30/20 Preoperative Diagnosis: Symptomatic grade 2-3 uterine prolapse, grade 3-4 cystocele. Postoperative Diagnosis: Same, normal-appearing ovaries bilaterally Procedure(s) Performed: Vaginal hysterectomy, anterior colporrhaphy Anesthesia: GETA Surgeon: Madyson Diaz Clinical Education Consultant #1: Shayy Helton Estimated Blood Loss (ml): 50 IV fluids (ml): 900 Urine output (ml): 50 Pathology: other (Cervix and uterus) Condition: stable Disposition: PACU Operative Findings: Normal-appearing ovaries bilaterally Description of Procedure: Patient is brought to the operating suite where a general anesthetic is administered after the spinal with Duramorph is placed in the preoperative area. Antibiotics are given. The cervix, vagina, perineal bodies are all prepped and draped in usual sterile fashion as the patient is placed in the dorsal lithotomy position. The appropriate timeout is performed to assure proper patient and procedural identification. Bladder is drained for approximately 50 mL of clear yellow urine. Weighted speculum was placed into the vagina. Anterior lip of the cervix is grasped with a double-tooth tenaculum. Cervix is injected circumferentially with 10 mL of dilute Pitressin solution. A ute mountain blade scalpel is used to incise the mucosa circumferentially with a V positioning at 6:00. Sponge rolled finger is used to sweep the overlying mucosa from the underlying fascial plane. At all times the bladder swept well from the operative field to avoid bladder and/or ureteral injury. Peritoneum is entered at 6:00 with Metzenbaum scissor, suture tied with 2-0 Vicryl and held with a hemostat. The large billed speculum is then placed into the vaginal vault. The right uterosacral cardinal ligament is identified, clamped with a Jackie clamp, cut and suture ligated and held laterally with a hemostat. The same procedure is carried out contralaterally. Please note that 0 Vicryl sutures used for the entire hysterectomy portion of this procedure. Mucosa is swept again from the Dawson, uterine vasculature is identified, clamped cut and suture ligated. 2 additional pedicles are taken superior to the vessels. Peritoneum was then entered with the Metzenbaum scissors at 12:00. Uterus is "walked out" posteriorly. The pedicles are clamped with Jackie clamps, the uterus and cervix are removed and sent to pathology for evaluation. These pedicles are tied firmly with a 0 Vicryl suture, flashed, and retied for excellent hemostasis. At this time the ovaries are visualized with a sponge stick and appear to be normal. They are left in situ per the patient's wishes. The speculum is changed to the shallow billed speculum, the 2-0 Vicryl suture is brought around in a pursestring fashion to close the peritoneum. The uterosacral cardinal ligaments are brought across to incorporate the opposite ligament as well as vaginal mucosa. 2 additional [id number] sutures are used to close the vaginal cough. Allis clamps are used on the anterior most portion of the vaginal mucosa and the cystocele Repair is started. The same dilute Pitressin solution is used to inject the mucosa in the midline. Metzenbaum scissors are used to undermine the mucosa and this is cut with Metzenbaum scissors to approximately 1.5 cm inferior to the urethra. The edges of the mucosa are held with Allis clamps. Sponge rolled finger is used to sweep the underlying fascia from the overlying mucosa. Stafford catheter is then placed into the bladder and the bladder is noted to be clear. 2-0 Vicryl sutures used in an interrupted fashion to bring the edges of the fascia together thereby completely eliminating the cystocele bulge. Metzenbaum scissors are used to trim the mucosa. 2-0 Vicryl is used in a running locking fashion to close the defect. Hemostasis is excellent. Stafford catheter is noted to be draining clear urine. One-inch iodophor gauze with basic tracing is used to pack the vagina. All sponge needle and enhancement counts are correct. Patient is brought back to the recovery room in very good condition with stable vital signs including blood pressure 103/68, pulse 67, 98% O2 saturation.
[2020-10-30] MEDS ORDERED: diphenhydrAMINE 50 MG/ML 1 ML VIAL IVP PRN (10:10)
[2020-10-30] MEDS ORDERED: METOCLOPRAMIDE 5 MG/ML 2 ML VIAL IVP PRN (10:10)
[2020-10-30] MEDS ORDERED: SIMETHICONE 80 MG CHEWABLE PO PRN (10:10)
[2020-10-30] MEDS ORDERED: KETOROLAC 15 MG/ML 1 ML VIAL IVP PRN (10:10)
[2020-10-30] MEDS ORDERED: IBUPROFEN 600 MG TAB PO PRN (10:10)
[2020-10-30] MEDS ORDERED: ZOLPIDEM 5 MG TAB PO PRN (10:10)
[2020-10-30] MEDS ORDERED: ONDANSETRON 4 MG/2 ML VIAL IVP PRN (10:10)
[2020-10-30] MEDS: METOPROLOL SUCCINATE (ER) 25 MG TAB.ER.24H PO SCH (21:09)
--- NOTE | 2020-10-31 06:52 | P.DS ---
Providers Date of admission: 10/30/20 Expected date of discharge: 10/31/20 Attending physician: Madyson Diaz [facility] Course: This is a 55-year-old white female who presented with an increasingly symptom atic cystocele and uterine prolapse. After consultation patient elected to proceed with surgical repair. Please see dictated history and physical for details. Yesterday under my care patient underwent a vaginal hysterectomy and cystocele repair. She did well intraoperatively, Stafford catheter and vaginal packing placed. Ovaries were preserved as per her request. Please see dictated operative note for details. This morning the patient is doing well. Vaginal packing and Stafford catheter had been removed. She is passing flatus and tolerating regular food. She has minimal to no pain. No vaginal bleeding is noted. No CVA tenderness. Vital signs are stable and she has remained afebrile. We are awaiting spontaneous void which will be measured. Pending post void residual is appropriate, my anticipation is for discharge home later today. Patient is judged to be in very good condition for discharge home. She is to follow-up with me in the office in 2 weeks. She is reminded no intercourse, tampons or douching. She will use [id number] Advil or Aleve, or Motrin as needed for pain. She will call with any fevers shakes or chills, vaginal bleeding, any pain not alleviated by [id number]-[id number] products, or indeed with any concerns. Assessment: Doing well postoperative day #1 Patient Condition at Discharge: Good Plan - Discharge Summary Discharge Rx Participant: No New Discharge Prescriptions: No Action Metoprolol Succinate (ER) [Toprol Xl] 25 mg PO BID Losartan/Hydrochlorothiazide [Losartan-Hctz 100-25 mg Tab] 1 each PO DAILY Magnesium Oxide [Mag-Ox] 250 mg PO HS PRN PRN Reason: RESTLESS LEG traZODone HCL 25 mg PO HS Ferrous Sulfate [Feosol] 325 mg PO DAILY Diclofenac Sodium Gel [Voltaren Gel] 2 gm TOPICAL QID PRN PRN Reason: Pain Discharge Medication List Losartan/Hydrochlorothiazide [Losartan-Hctz 100-25 mg Tab] 1 each PO DAILY 07/25/16 [History] Metoprolol Succinate (ER) [Toprol Xl] 25 mg PO BID 07/25/16 [History] Magnesium Oxide [Mag-Ox] 250 mg PO HS PRN 08/27/16 [History] Ferrous Sulfate [Feosol] 325 mg PO DAILY 11/14/16 [History] traZODone HCL 25 mg PO HS 11/14/16 [History] Diclofenac Sodium Gel [Voltaren Gel] 2 gm TOPICAL QID PRN 10/24/20 [History] Follow up Appointment(s)/Referral(s): Madyson Diaz MD [STAFF PHYSICIAN] - 2 Weeks Patient Instructions/Handouts: *Surgery [facility] - Scopalamine Patch Instructions Discharge Disposition: HOME SELF-CARE
--- NOTE | 2020-10-31 06:58 | P.PN ---
Progress Note - Text Progress Note Date: 10/31/20 (656) Anesthesia Postop day [1] Subjective: Status Post vaginal hysterectomy with Duramorph. Patient seen and examined. [Doing well without complaint]. VAS [0]. ild pruritustolerable. No nausea or vomiting. [Afebrile]. [Gross lower extremity strength intact]. . Without apparent anesthetic complications. Objective: Vital signs reviewed Heart: [Regular Rate] Lungs: [Good chest excursion] Abdomen: [Appears nondistended] Assessment: Status post vaginal hysterectomy with Duramorph postop day 1 Plan: Continue current care with your medical management.
[2020-10-31 08:33] VITALS: BP 147/84; PULSE 78; RESP 17; TEMP 99
[2020-10-31] MEDS: METOPROLOL SUCCINATE (ER) 25 MG TAB.ER.24H PO SCH (08:50)
[2020-10-31] MEDS ORDERED: LOSARTAN-HCTZ 50-12.5 MG 1 EACH TAB PO SCH (09:00)
== END 2020-10-31 11:50 | disposition home or self-care (01) ==
LOC: OR 07:24 → 4FBP 09:52 → OR 10-31 11:50
PROVIDERS: ATTEND Obstetrics & Gynecology
DX: N81.2 Incomplete uterovaginal prolapse (principal); Z20.822 Contact with and (suspected) exposure to COVID-19; N80.0 Endometriosis of uterus; I10 Essential (primary) hypertension; D64.9 Anemia, unspecified; Z87.440 Personal history of urinary (tract) infections; Z79.899 Other long term (current) drug therapy; Z88.8 Allergy status to other drugs, medicaments and biological substances
CPT/HCPCS: 86900; 86901; 86850; 88307; 87635; 58260; J2250; J1200; J1100; J0690; J2405; J2001; J2274; J3010; J1885; J0330; J2704

== ENCOUNTER → 2021-08-08 | Outpatient (CLI) | payer BC ==
--- NOTE | 2021-08-08 08:29 | MM ---
Reason for Exam: Additional evaluation requested from prior study. Last screening mammogram was performed 10 month(s) ago. Patient History: Menarche at age 11. First Full-Term at age 17. Patient used Hormonal Contraceptives for 10 years. 2002, Reduction on the Right side. 2002, Reduction on the Left side. 12/22/2007, Benign Core Biopsy on the right side. Risk Values: Adelaide 5 year model risk: 1.1%. NCI Lifetime model risk: 6.7%. Prior Study Comparison: 05/31/2016 Bilateral Screening Mammogram, [facility]. 11/11/2017 Bilateral Screening Mammogram, [facility]. 02/02/2019 Bilateral Screening Mammogram, [facility]. 09/22/2020 Bilateral Screening Mammogram, [facility]. Tissue Density: The breast tissue is heterogeneously dense. This may lower the sensitivity of mammography. Findings: Analyzed By CAD. Stable chronic bilaterally. No suspicious calcifications evident. Clip marker right breast from prior biopsy. Overall Assessment: Benign, BI-RAD 2 Management: Screening Mammogram of both breasts in 1 year. A clinical breast exam by your physician is recommended on an annual basis and results should be correlated with mammographic findings. This exam should not preclude additional follow-up of suspicious palpable abnormalities. Results were given to the patient verbally at the time of exam. Electronically signed and approved by: John Noel M.D. Radiologis
== END | disposition home or self-care (01) ==
LOC: RADMAMWWP 07:39
PROVIDERS: ATTEND Family Medicine
DX: R92.8 Other abnormal and inconclusive findings on diagnostic imaging of breast (principal)
CPT/HCPCS: 77062; 77066

== ENCOUNTER → 2023-04-01 | Outpatient (CLI) | payer BC ==
--- NOTE | 2023-04-02 21:43 | MM ---
Reason for Exam: Screening (asymptomatic). Last mammogram was performed 1 year(s) and 8 month(s) ago. Patient History: Menarche at age 11. First Full-Term at age 17. Patient used Hormonal Contraceptives for 10 years. 2002, Reduction on the Right side. 2002, Reduction on the Left side. 12/22/2007, Benign Core Biopsy on the right side. Risk Values: Adelaide 5 year model risk: 1.2%. NCI Lifetime model risk: 6.4%. Prior Study Comparison: 02/02/2019 Bilateral Screening Mammogram, [facility]. 09/22/2020 Bilateral Screening Mammogram, [facility]. 08/08/2021 Bilateral MG 3D diag mammo w/cad [facility], [facility]. Tissue Density: There are scattered fibroglandular densities. Findings: Analyzed By CAD. Chronic bilateral nodularity. Microclip right breast from prior biopsy. Unchanged bilateral areas of asymmetric density. There is no suspicious group of microcalcifications or new suspicious mass in either breast. Overall Assessment: Benign, BI-RAD 2 Management: Screening Mammogram of both breasts in 1 year. . Patient should continue monthly self-breast exams. A clinical breast exam by your physician is recommended on an annual basis. This exam should not preclude additional follow-up of suspicious palpable abnormalities. Note on Adelaide scores and lifetime risk: 1. A Adelaide score greater than 3% is considered moderate risk. If this is the case, consider specialist referral to assess eligibility for a risk reducing agent. 2. If overall lifetime risk for the development of breast cancer is 20% or higher, the patient may qualify for future screening with alternating mammogram and breast MRI. Electronically signed and approved by: Dahlia Elliott M.D. Radiologist
== END | disposition home or self-care (01) ==
LOC: RADMAMWWP 09:15
PROVIDERS: ATTEND Obstetrics & Gynecology
DX: Z12.31 Encounter for screening mammogram for malignant neoplasm of breast (principal)
CPT/HCPCS: 77063; 77067

== ENCOUNTER → 2023-12-19 | Outpatient (CLI) | payer BC ==
[2023-12-19 14:59] LABS: HCT 48.7 % (37.2-46.3); HGB 15.9 g/dL (12.0-15.0); MCH 30.2 pg (27.0-32.0); MCHC 32.6 g/dL (32.0-37.0); MCV 92.6 FL (80.0-97.0); Mean Platelet Volume 10.5 FL (9.5-12.2); NRBC Per 100 WBC 0 X 10*3/uL (0.00-0.01); Platelet Count 226 X 10*3/uL (140-440); RBC 5.26 X 10*6/uL (4.10-5.20); RDW 12.5 % (11.5-14.5); WBC 6.18 X 10*3/uL (4.50-10.00)
[2023-12-19 16:21] LABS: ALT 21 U/L (8-44); AST 24 U/L (13-35); BUN/Creat Ratio 18.25 Ratio (12.00-20.00); Blood Urea Nitrogen 14.6 mg/dL (9.0-27.0); Calcium 9.7 mg/dL (8.7-10.3); Carbon Dioxide 26.8 mmol/L (21.6-31.8); Chloride 107 mmol/L (96-109); Chol/HDL Ratio 3.43 Ratio; Glucose 94 mg/dL (70-110); LDL Cholesterol,Calculated 116.5 mg/dL (0.0-131.0); Potassium 4.9 mmol/L (3.5-5.5); Sodium 143 mmol/L (135-145)
== END | disposition home or self-care (01) ==
LOC: LABWHC1 08:52
PROVIDERS: ATTEND Internal Medicine Cardiovascular Disease
DX: E78.2 Mixed hyperlipidemia (principal); R07.2 Precordial pain
CPT/HCPCS: 36415; 80048; 80061; 84450; 84460; 85027

== ENCOUNTER 2023-12-26 09:11 | Day surgery (SDC) | payer BC ==
[2023-12-22 14:02] VITALS: BMI 29.7
[~2023-12-26 09:11] MED LIST changes: +ALPRAZolam 0.25 MG TAB PO PRN; -DEXAMETHASONE SOD PHOSPHATE 4 MG/ML 1 ML VIAL IV ONE; +HEPARIN SODIUM,PORCINE (1 ML) 2,500 UNIT in SODIUM CHLORIDE 0.9% 250 ML IRRIGATION PRN; +HEPARIN SODIUM,PORCINE 10,000 UNIT in SODIUM CHLORIDE 0.9% 1,000 ML IRRIGATION PRN; -HYDROmorphone 0.5 MG/0.5 ML SYRINGE IVP PRN; -LACTATED RINGERS 1,000 ML IV SCH; +NITROGLYCERIN SL TABS 0.4 MG TAB SUBLINGUAL PRN; -ONDANSETRON 4 MG/2 ML VIAL IVP ONE
[2023-12-26] MEDS: SODIUM CHLORIDE 0.9% 1,000 ML in EMPTY BAG 1 BAG IV SCH ×2 (09:35→14:12)
[2023-12-26] MEDS: ALPRAZolam 0.5 MG TAB PO PRN (09:35)
[2023-12-26] MEDS: SODIUM CHLORIDE 0.9% 1,000 ML IV ONE ×2 (09:40→13:20)
[2023-12-26] MEDS: MIDAZOLAM 2 MG/2 ML VIAL IVP ONE (10:15)
[2023-12-26] MEDS: LIDOCAINE 1% INJ 10MG/ML (20 ML MDV) SQ ONE (10:18)
[2023-12-26] MEDS: VERAPAMIL SYRINGE (5 MG/10 ML) INTRAARTER ONE ×2 (10:20→12:14)
[2023-12-26] MEDS: HEPARIN SODIUM 1,000 UN/ML (10ML VL) IVP ONE (10:24)
[2023-12-26] MEDS: IV FLUID CONTINUATION 1,000 ML IV ONE (10:55)
[2023-12-26] MEDS: IOPAMIDOL-370 100ML BTL INJ ONE ×3 (10:57→13:20)
--- NOTE | 2023-12-26 11:03 | CC ---
CARDIAC CATHETERIZATION REPORT INDICATION: Unstable angina. This is a 58-year-old lady with history of hypertension, who initially presented to us with chest pain in December, underwent a stress test that was unremarkable. Subsequently, had a CT angiogram of the coronaries at [facility], which was technically suboptimal, but did not show significant disease, comes to me complaining of exertional chest pain that radiated to her neck. Due to her symptoms suggestive of new onset angina, I advised her to undergo cardiac catheterization for definitive evaluation. She had been explained of risks, benefits and alternatives, understood and accepted. PROCEDURE NOTE: After obtaining informed consent, left heart catheterization and coronary angiogram were performed via the right radial artery using standard Bernie catheters. The patient tolerated the procedure well without obvious immediate complications, received moderate conscious sedation. Total sedation time was 17 minutes. Right radial artery access was obtained using Seldinger technique, 6-Mozambican sheath was placed. Catheters and wires were floated into the ascending aorta under fluoroscopic guidance. The patient received verapamil and heparin per protocol. FINDINGS: 1. HEMODYNAMICS: Left ventricular end-diastolic pressure is 8 to 10 mm. There is no significant gradient across the aortic valve. 2. LEFT VENTRICULOGRAM: Left ventriculogram is not performed. 3. ANGIOGRAPHIC DATA: a.Right coronary artery: Right coronary artery is a large dominant vessel that shows a focal 99% stenosis involving mid RCA. b.Left main coronary artery is a normal-sized vessel and is free of stenosis. Divides into left anterior descending coronary artery and circumflex coronary artery. c.Circumflex coronary artery and its branches are free of significant stenosis. Proximal LAD shows a focal 70% to 80% stenosis. CONCLUSION: Two-vessel coronary artery disease as described above. PLAN: I had Dr. Contreras, the on-call wet pour mixer review the angiographic data and he will proceed with angioplasty with stent placement of the right coronary artery and LAD. MMODL / IJN: [id number] /
--- NOTE | 2023-12-26 11:09 | LTR ---
Dear Joés Luis: I performed cardiac catheterization on Lizbeth Joaquin. A detailed catheterization note is enclosed for your records. In brief, cardiac catheterization revealed severe 2-vessel coronary artery disease and the patient will undergo catheter based revascularization of the same. Thank you for allowing us to participate in the care of this pleasant lady. CRISS / TERRELL: [id number] /
[2023-12-26] MEDS: fentaNYL (PF) 50 MCG/ML 2 ML AMP IVP ONE (12:12)
[2023-12-26] MEDS: LIDOCAINE 2% (PF) 20 MG/ML 5 ML VIAL SQ ONE (12:13)
[2023-12-26] MEDS: CLOPIDOGREL 75 MG TAB PO ONE (12:15)
[2023-12-26] MEDS ORDERED: MAG HYDROX/AL HYDROX/SIMETH 30 ML CUP PO PRN (13:29)
[2023-12-26] MEDS ORDERED: ATROPINE SULFATE 0.1 MG/ML 10ML SYRINGE IV PRN (13:29)
[2023-12-26] MEDS ORDERED: ZOLPIDEM 5 MG TAB PO PRN (13:29)
[2023-12-26] MEDS ORDERED: RX INFO: IV CONTRAST WAS GIVEN 1 EACH MISC MISCELLANE PRN (13:29)
[2023-12-26] MEDS ORDERED: NITROGLYCERIN SL TABS 0.4 MG TAB SUBLINGUAL PRN (13:29)
--- NOTE | 2023-12-26 13:37 | P.CARDCATH ---
Date of Procedure: 12/26/23 Description of Procedure: PERCUTANEOUS TRANSLUMINAL CORONARY ANGIOPLASTY CLINICAL INFORMATION: The patient is a 58-year-old female with a known history of hypertension and hyperlipidemia who has been complaining of exertional arm discomfort, she underwent coronary angiography by Dr. Gonzales and was found to have severe obstructive disease involving the RCA and proximal LAD.. Recommendations were made regarding angioplasty and stenting. The procedure as well as the risks and the complications were discussed with the patient who was in full understanding and agreement. PROCEDURE: Using guidewire exchange technique the 6 [place] Zealander sheath in the right radial artery was exchanged to a new 6 [place]ander sheath. A 6 [place]alander 0.75 AL guiding catheter was introduced into the system. After cannulating the right coronary ostium, a 0.014 BMW J-wire was advanced across the lesion and positioned distally. A 6 [place]alander guide liner was introduced into the system to stabilize the guiding catheter because of the superior takeoff of the RCA. Following that a 2.5 x 12 mm trek balloon was advanced and inflated at 8 at mosphere. After removing the balloon a [employer] eye IVUS catheter was introduced and imaging was performed that revealed mild calcification with evidence of significant stenosis in a diffuse pattern. The distal vessel measured close to 4.0 mm in diameter. Following that a 3.5 x 28 mm Xience westley point stent was deployed. It was dilated at 16 yuri. Repeat IVUS imaging was performed and revealed mild under deployment of the stent in the midsegment. Subsequently a 3.5 x 15 mm NC trek balloon was advanced and inflation in the stent were done at 10 yuri. Repeat imaging revealed an area of dissection distal to the stent and proximal to it. A 3.0 x 23 mm Xience westley point stent was positioned in the distal segment distal to the stent and deployed at 16 yuri and after removing the stent 3.5 x 15 mm Xience westley point stent was deployed proximal segment and dilated at 16 yuri. Repeat IVUS imaging was performed and revealed a lumen measuring 4.0 to 4.2 mm. Subsequently a 4.0 x 12 mm NC trek balloon was advanced and multiple inflations throughout the stents were performed at maximum of 10 yuri. After the last inflation, after appropriate wait, the balloon and the guidewire were withdrawn back into the guiding catheter. Images were obtained and repeated. Those images reveal stable successful stenting. At that point, the guiding catheter, the balloon, and guidewire were removed. The sheath was removed. Hemostasis was obtained with TR band. There were no immediate complications. The patient was returned to the room in stable condition. Of note, the patient received 8000 units of heparin as well as Plavix. Her ACT was followed. There was no immediate complications. She had arm discomfort and neck discomfort with the inflations similar to her symptoms at home that resolved at the end of the procedure. She had mild EKG changes that resolved. RESULTS: Successful stenting of the of a long segment of the proximal and the mid RCA with reduction of stenosis from 99% to less than 5% with IVUS imaging and LUCRECIA-3 flow. RECOMMENDATIONS: The patient will continue on dual antiplatelet treatment with aspirin and clopidogrel for 6 months without any interruption in addition to aggressive coronary risks modifications, maintaining LDL below 70 mg/dL. She will be readmitted electively to undergo stenting of the LAD. The findings and recommendations were discussed with the patient and the family, they are in full understanding and agreement. Duration of sedation: 67 minutes
[2023-12-26] MEDS: ACETAMINOPHEN TAB 500 MG TAB PO STA (13:54)
[2023-12-26] MEDS: ASPIRIN 325 MG TAB PO ONE (13:55)
[2023-12-26] MEDS: ATORVASTATIN 80 MG TAB PO ONE (13:56)
[2023-12-26] MEDS: LOSARTAN-HCTZ 50-12.5 MG 1 EACH TAB PO SCH (14:09)
[2023-12-26] MEDS: traZODone HCL 50 MG TAB PO SCH (19:35)
[2023-12-26] MEDS: ACETAMINOPHEN TAB 325 MG TAB PO PRN (19:35)
[2023-12-26] MEDS: METOPROLOL SUCCINATE (ER) 25 MG TAB.ER.24H PO SCH (19:35)
--- NOTE | 2023-12-27 07:12 | P.PN ---
Subjective Progress Note Date: 12/27/23 PROGRESS NOTE The patient is a 58-year-old female with known history of hypertension and hyperlipidemia who has been complaining of arm and neck discomfort, has been followed by Dr. Gonzales underwent cardiac catheterization and was found to have severe obstructive disease involving the RCA and the LAD. She underwent stenting of the RCA. She is feeling well this morning. She denies any chest discomfort, dizziness or palpitations. She has been ambulating without difficulties. She continues to be in sinus mechanism. Medications: Aspirin, Plavix 75 mg daily, Lipitor 40 mg daily, losartan 100-25 mg daily, metoprolol succinate 25 mg daily PHYSICAL EXAMINATION: Blood pressure 136/80 heart rate 70 LUNGS: Clear to auscultation HEART: Regular rate and rhythm, S1, S2. No S3. No systolic murmur ABDOMEN: Soft, nontender, no organomegaly EXTREMETIES: No edema, right radial side with no hematoma LAB: Pending IMPRESSION: 1. Status post stenting of the RCA 2. Obstructive disease in the LAD 3. Hypertension 4. Hyperlipidemia PLAN: 1. The patient will be discharged home today 2. Continue present therapy 3. She will be scheduled to undergo elective PCI of the LAD 4. Follow-up with Dr. Gonzales Objective - Vital Signs Vital signs: Vital Signs Temp 98.2 F 12/27/23 04:00 Pulse 79 12/27/23 04:00 Resp 16 12/27/23 04:00 BP 136/85 12/27/23 04:00 Pulse Ox 96 12/27/23 04:00 FiO2 Intake & Output 12/26/23 12/27/23 12/27/23 18:59 06:59 18:59 Intake Total 1050 Output Total 200 Balance 850 Weight 83.5 kg 82.1 kg Intake: IV 1050 Output: Urine 200
[2023-12-27 07:51] LABS: Basophils % (A) 0 %; Eosinophils # (A) 0.2 k/uL (0-0.7); Eosinophils % (A) 3 %; HCT 46.7 % (34.0-46.0); HGB 15.3 gm/dL (11.4-16.0); Lymphocytes # (A) 1.5 k/uL (1.0-4.8); Lymphocytes % (A) 20 %; MCH 30.2 pg (25.0-35.0); MCHC 32.8 g/dL (31.0-37.0); MCV 92.3 fL (80.0-100.0); Mean Platelet Volume 7.3; Monocytes # (A) 0.6 k/uL (0-1.0); Monocytes % (A) 8 %; Neutrophils % (A) 67 %; Platelet Count 246 k/uL (150-450); RBC 5.06 m/uL (3.80-5.40); RDW 12.6 % (11.5-15.5); WBC 7.5 k/uL (3.8-10.6)
[2023-12-27] MEDS: ASPIRIN 81 MG PO SCH (07:53)
[2023-12-27] MEDS: ATORVASTATIN 40 MG TAB PO SCH (07:54)
[2023-12-27] MEDS: CLOPIDOGREL 75 MG TAB PO SCH (07:54)
[2023-12-27 07:57] LABS: African American GFR (CKD) >90 (>60 ml/min/1.73 sqM); Anion Gap 7 mmol/L; Blood Urea Nitrogen 11 mg/dL (7-17); Calcium 9.6 mg/dL (8.4-10.2); Carbon Dioxide 28 mmol/L (22-30); Chloride 105 mmol/L (98-107); Glucose 100 mg/dL (74-99); Non-African American GFR(CKD) 83 (>60 ml/min/1.73 sqM); Potassium 4.6 mmol/L (3.5-5.1); Sodium 140 mmol/L (137-145)
[2023-12-27 08:46] VITALS: BP 175/90; PULSE 69; RESP 18; TEMP 98
[2023-12-27] MEDS ORDERED: LOSARTAN-HCTZ 50-12.5 MG 1 EACH TAB PO SCH (09:00)
== END 2023-12-27 09:22 | disposition home or self-care (01) ==
LOC: CATHCVL 09:11 → 3SCARD 13:52 → CATHCVL 12-27 09:22
PROVIDERS: ATTEND Internal Medicine Cardiovascular Disease
DX: I25.110 Atherosclerotic heart disease of native coronary artery with unstable angina pectoris (principal); I10 Essential (primary) hypertension; E78.5 Hyperlipidemia, unspecified; Z79.02 Long term (current) use of antithrombotics/antiplatelets; Z79.82 Long term (current) use of aspirin; Z79.899 Other long term (current) drug therapy; Z95.5 Presence of coronary angioplasty implant and graft
CPT/HCPCS: 92978; 93458; 80048; 85025; C9600; C1769 ×3; C1887 ×2; C1894; C1725 ×3; C1753; C1874 ×3; J2250; J2003 ×2; J3010; J1644 ×2; Q9967

== ENCOUNTER 2024-01-14 09:08 | Day surgery (SDC) | payer BC ==
[2024-01-13 08:58] VITALS: BMI 28.3
[2024-01-14] MEDS: ASPIRIN 325 MG TAB PO STA (09:29)
[2024-01-14] MEDS: ATORVASTATIN 80 MG TAB PO STA (09:29)
[2024-01-14] MEDS: SODIUM CHLORIDE 0.9% 1,000 ML in EMPTY BAG 1 BAG IV SCH (09:29)
[2024-01-14] MEDS: IV FLUID CONTINUATION 1,000 ML IV ONE (09:30)
[2024-01-14 09:41] VITALS: RESP 16; TEMP 98.2
[2024-01-14] MEDS: ALPRAZolam 0.5 MG TAB PO PRN (09:44)
[2024-01-14] MEDS: MIDAZOLAM 2 MG/2 ML VIAL IVP ONE (11:20)
[2024-01-14] MEDS: fentaNYL (PF) 50 MCG/ML 2 ML AMP IVP ONE (11:20)
[2024-01-14] MEDS: VERAPAMIL SYRINGE (5 MG/10 ML) INTRAARTER ONE (11:20)
[2024-01-14] MEDS: LIDOCAINE 1% INJ 10MG/ML (20 ML MDV) SQ ONE (11:20)
[2024-01-14] MEDS: HEPARIN SODIUM 1,000 UN/ML (10ML VL) IVP ONE ×3 (11:21→11:57)
[2024-01-14] MEDS: CLOPIDOGREL 75 MG TAB PO ONE (11:21)
[2024-01-14] MEDS: HEPARIN SODIUM,PORCINE (1 ML) 2,500 UNIT in SODIUM CHLORIDE 0.9% 250 ML IRRIGATION ONE (11:37)
[2024-01-14] MEDS: HEPARIN SODIUM,PORCINE 10,000 UNIT in SODIUM CHLORIDE 0.9% 1,000 ML IRRIGATION ONE (11:37)
[2024-01-14] MEDS: IOPAMIDOL-370 100ML BTL INJ ONE ×2 (11:42→11:55)
[2024-01-14] MEDS ORDERED: ATROPINE SULFATE 0.1 MG/ML 10ML SYRINGE IV PRN (12:14)
[2024-01-14] MEDS ORDERED: ZOLPIDEM 5 MG TAB PO PRN (12:14)
[2024-01-14] MEDS ORDERED: NITROGLYCERIN SL TABS 0.4 MG TAB SUBLINGUAL PRN (12:14)
[2024-01-14] MEDS ORDERED: MAG HYDROX/AL HYDROX/SIMETH 30 ML CUP PO PRN (12:14)
[2024-01-14] MEDS ORDERED: RX INFO: IV CONTRAST WAS GIVEN 1 EACH MISC MISCELLANE PRN (12:14)
[2024-01-14] MEDS ORDERED: SODIUM CHLORIDE 0.9% 1,000 ML in EMPTY BAG 1 BAG IV SCH (12:15)
--- NOTE | 2024-01-14 12:23 | P.CARDCATH ---
Date of Procedure: 01/14/24 Description of Procedure: Cardiac Catheterization: The patient is a 58-year-old female with known history of hypertension and hyperlipidemia, followed by Dr. Gonzales who has been complaining of exertional discomfort and had an abnormal coronary angiography with significant obstructive disease in the RCA and the LAD. She underwent stenting of the RCA and she is admitted electively to undergo stenting of the LAD and reimaging of the RCA. Recommendations were made regarding cardiac catheterization, the risks and the complications were discussed with the patient who is in full understanding and agreement. Procedure Description: Patient was brought to cath lab radiological technologist in fasting semi-sedated state after receiving Fentanyl and Benadryl achieiving moderate conscious sedated state. Using Xylocaine Anesthesia and modified Seldinger technique, a 6-Mongolian sheath was introduced in the right radial artery . Subsequently, selective coronary angiography was performed using a 5-Mongolian 3.5 bend right Bernie catheter and 6 Mongolian EBU 3.75 guiding catheter. Multiple views of the coronary artery including hemiaxial views were obtained. The right Bernie catheter was used to cross the aortic valve and LVEDP was calculated. PCI: Using the 6 Mongolian EBU 3.75 and after cannulating the left main a 0.014 BMW J- wire was positioned in the LAD subsequently a 2.5 x 12 mm trek balloon was advanced and 1 inflation at 8 yuri was done. After removing the balloon a [employer] [place] eye IVUS catheter was introduced and images were obtained that revealed mild calcification. After removing the balloon a 3.25 x 18 mm Xience westley point stent was deployed at 16 yuri, after removing the balloon repeat IVUS imaging was performed and revealed good apposition in the distal stent was under deployed proximally. At that point a 4.0 x 12 mm NC trek balloon was advanced and 1 inflation at 10 yuri was done in the proximal segment. Repeat IVUS imaging revealed good apposition with a minimal lumen area of over 10 mm. After removing the wire images were obtained and revealed stable successful stenting. Following that, catheter and sheath were removed. Hemostasis was obtained with deployment of vascular band . There was no immediate complication. Patient was returned to room in stable condition. Of note, the patient received a total of 8000 units of intravenous heparin as well as intra-arterial verapamil. She was continued on clopidogrel. Her ACT was followed. She had chest discomfort and EKG changes that resolved at the end of the procedure. Findings: Left main: This is a large size vessel, bifurcating into LAD and left circumflex, left main has no obstructive disease LAD: This is a large size vessel, tortuous in the midsegment, giving rise to a moderately sized diagonal branch proximally. At the takeoff of the diagonal branch there is an eccentric 80% stenosis, the rest of the vessel has no high- grade stenosis intimal disease in the diagonal branch was noted up to 50 to 60%. Left circumflex: This is a large nondominant vessel giving rise to 3 obtuse marginal branch, the left circumflex and its branches have no obstructive disease RCA: This is a large dominant vessel, bifurcating distally to PDA and PLV has a superior takeoff. The stented segment in the proximal and mid RCA are patent with no significant obstructive disease Left Ventriculogram: Not performed Hemodynamics: There was no gradient across aortic valve, LVEDP was 8-12 mmHg Conclusion: 1. Severe stenosis in the proximal LAD 2. Patent stent of the RCA 3. No obstructive disease in the left circumflex 4. Successful stenting of the proximal LAD with reduction of stenosis from 80% to 0% with IVUS imaging and LUCRECIA-3 flow. There was a mild plaque distal to the stent. Recommendations: The patient will continue on aspirin and clopidogrel for 6 months without any interruption in addition to aggressive coronary risks modification, maintaining LDL below 70 mg/dL. The findings and the recommendations were discussed with the patient and the family and they were in full understanding and agreement. Duration of sedation is 40 minutes.
[2024-01-14 15:07] VITALS: BP 133/84
[2024-01-14] MEDS: ACETAMINOPHEN TAB 500 MG TAB PO STA (15:09)
[2024-01-14 15:54] VITALS: PULSE 65
[2024-01-14] MEDS ORDERED: METOPROLOL SUCCINATE (ER) 25 MG TAB.ER.24H PO SCH (20:00)
[2024-01-14] MEDS ORDERED: ATORVASTATIN 40 MG TAB PO SCH (21:00)
[2024-01-14] MEDS ORDERED: traZODone HCL 50 MG TAB PO SCH (21:00)
[2024-01-15] MEDS ORDERED: LOSARTAN-HCTZ 50-12.5 MG 1 EACH TAB PO SCH (09:00)
[2024-01-15] MEDS ORDERED: CLOPIDOGREL 75 MG TAB PO SCH (09:00)
[2024-01-15] MEDS ORDERED: ASPIRIN 81 MG PO SCH (09:00)
== END 2024-01-14 16:46 | disposition home or self-care (01) ==
LOC: CATHCVL 09:08
PROVIDERS: ATTEND Internal Medicine Interventional Cardiology
DX: I25.110 Atherosclerotic heart disease of native coronary artery with unstable angina pectoris (principal); I25.84 Coronary atherosclerosis due to calcified coronary lesion; Z95.5 Presence of coronary angioplasty implant and graft; I10 Essential (primary) hypertension; E78.00 Pure hypercholesterolemia, unspecified; Z79.02 Long term (current) use of antithrombotics/antiplatelets; Z79.82 Long term (current) use of aspirin; Z79.899 Other long term (current) drug therapy; Z88.8 Allergy status to other drugs, medicaments and biological substances
CPT/HCPCS: 92978; C9600; J2250; J1644 ×3; J2003; J3010; Q9967

== ENCOUNTER 2024-02-05 09:09 | Emergency (ER) | payer BC ==
[2024-02-05 09:16] VITALS: RESP 18; TEMP 97.8
--- NOTE | 2024-02-05 09:38 | ED ---
General Adult HPI - General Chief complaint: Chest Pain Stated complaint: Numbess L Arm Time Seen by Provider: 02/05/24 09:18 Source: patient, RN notes reviewed, old records reviewed Mode of arrival: ambulatory Limitations: no limitations - History of Present Illness Initial comments: 58-year-old female history of CAD presenting for evaluation of left arm numbness and tingling. Patient does report sided neck pain as well. Patient symptoms have been present for the past 5 days. She was seen by her runner worker as a follow-up after recent stents within the last 2 months. She denies central chest pain or dyspnea. She reports chronic cough. No fever. No focal weakness. no Headache. - Related Data Home Medications Medication Instructions Recorded Confirmed Losartan/Hydrochlorothiazide 1 each PO QAM 07/25/16 01/14/24 [Losartan-Hctz 100-25 mg Tab] Metoprolol Succinate (ER) [Toprol 25 mg PO 199907/25/16 01/14/24 XL] Magnesium Oxide [Mag-Ox] 250 mg PO HS PRN 08/27/16 01/14/24 traZODone HCL 25 mg PO HS 11/14/16 01/14/24 Diclofenac Sodium Gel [Voltaren 1% 2 gm TOPICAL QID PRN 10/24/20 01/13/24 Gel] Ibuprofen(Unknown Dose) 1 tab PO Q8H PRN 12/22/23 01/14/24 Atorvastatin [Lipitor] 40 mg PO HS 01/13/24 01/14/24 Clopidogrel [Plavix] 75 mg PO HS 01/13/24 01/14/24 Previous Rx's Medication Instructions Recorded Aspirin 81 mg PO DAILY tab 12/27/23 Nitroglycerin Sl Tabs [Nitrostat] 0.4 mg SUBLINGUAL Q5M PRN #25 tab 12/27/23 Allergies Allergy/AdvReac Type Severity Reaction Status Date / Time prochlorperazine Allergy " flat Verified 02/05/24 09:16 [From Compazine] lined" per pt Review of Systems ROS Statement: Those systems with pertinent positive or pertinent negative responses have been documented in the HPI. ROS Other: All systems not noted in ROS Statement are negative. Past Medical History Past Medical History: Hypertension Additional Past Medical History / Comment(s): See Dr Contreras's H&P. " I get pain that goes up into my neck so this is the next test to be done." "Even walking up a hill triggers the pain." "Irregular heart beat." Does not use CPAP. History of Any Multi-Drug Resistant Organisms: None Reported Past Surgical History: Breast Surgery, Heart Catheterization With Stent, Tubal Ligation Additional Past Surgical History / Comment(s): BREAST REDUCTION, COLONOSCOPY, EGD, RIGHT LEG VARICOSE VEIN STRIPPING, 4 CARDIAC STENT. Past Anesthesia/Blood Transfusion Reactions: Motion Sickness, Postoperative Nausea & Vomiting (PONV) Additional Past Anesthesia/Blood Transfusion Reaction / Comment(s): "I get vaso-vagal if I get up too fast." No hx of blood tranfusion to date. Date of Last Stent Placement:: 12/26/23 Past Psychological History: Depression Smoking Status: Never smoker Past Alcohol Use History: Occasional Past Drug Use History: None Reported - Past Family History Mother Family Medical History: Cancer, Deep Vein Thrombosis (DVT) Additional Family Medical History / Comment(s): Unsure of type of cancer. General Exam Limitations: no limitations General appearance: alert, in no apparent distress Head exam: Present: atraumatic, normocephalic Eye exam: Present: normal appearance, PERRL ENT exam: Present: normal exam Neck exam: Present: normal inspection. Absent: tenderness, meningismus Respiratory exam: Present: normal lung sounds bilaterally. Absent: respiratory distress, wheezes Cardiovascular Exam: Present: regular rate, normal rhythm GI/Abdominal exam: Present: soft Extremities exam: Present: normal inspection, normal capillary refill Neurological exam: Present: alert, oriented X3, CN II-XII intact, other (Normal strength throughout, no appreciable numbness on exam, NIH is 0). Absent: motor sensory deficit Psychiatric exam: Present: normal affect, normal mood Skin exam: Present: warm, dry, intact Course Vital Signs 02/05/24 02/05/24 09:11 10:03 Temperature 97.8 F Pulse Rate 90 73 Respiratory 18 18 Rate Blood Pressure 183/136 169/102 O2 Sat by Pulse 98 96 Oximetry Medical Decision Making - Medical Decision Making Was pt. sent in by a medical professional or institution (, PA, HALFWAY HOUSE COUNSELOR, urgent care, hospital, or longterm...) When possible be specific @ -No Did you speak to anyone other than the patient for history (EMS, parent, family, police, friend...)? What history was obtained from this source @ -No Did you review nursing and triage notes (agree or disagree)? Why? @ -I reviewed and agree with nursing and triage notes Were old charts reviewed (outside hosp., previous admission, EMS record, old EKG, old radiological studies, urgent care reports/EKG's, longterm records)? Report findings @ -No old charts were reviewed Differential Chest Pain: Stable Angina, Unstable Angina, STEMI, NSTEMI Aortic Dissection, Pneumothorax, Musculoskeletal, Esophageal Spasm GERD, Cholecystitis, Pancreatitis, Zoster, this is not meant to be an all-inclusive list. EKG interpreted by me (3pts min.). @Sinus rhythm rate of 70, sinus arrhythmia SD interval 181, QRS duration 98, QTc [address] segment elevation. X-rays interpreted by me (1pt min.). @ -Chest x-ray negative for acute cardiopulmonary findings CT interpreted by me (1pt min.). @ -CT brain negative for acute stroke, no hemorrhage U/S interpreted by me (1pt. min.). @ -None done What testing was considered but not performed or refused? (CT, X-rays, U/S, labs)? Why? @ -None What meds were considered but not given or refused? Why? @ -None Did you discuss the management of the patient with other professionals (professionals i.e. , PA, HALFWAY HOUSE COUNSELOR, lab, RT, psych nurse, social insurance analyst, him director, teacher, real estate utilization officer, immigration case worker)? Give summary @ -No Was smoking cessation discussed for >3mins.? @ -No Was critical care preformed (if so, how long)? @ -No Were there social determinants of health that impacted care today? How? (Homeles sness, low income, unemployed, alcoholism, drug addiction, transportation, low edu. Level, literacy, decrease access to med. care, [facility], rehab)? @ -No Was there de-escalation of care discussed even if they declined (Discuss DNR or withdrawal of care, Hospice)? DNR status @ -No What co-morbidities impacted this encounter? (DM, HTN, Smoking, COPD, CAD, Cancer, CVA, ARF, Chemo, Hep., AIDS, mental health diagnosis, sleep apnea, morbid obesity)? @ -[Hypertension, CAD Was patient admitted / discharged? Hospital course, mention meds given and route, prescriptions, significant lab abnormalities, going to OR and other pertinent info. @58-year-old female with 5 days of left-sided neck pain, left arm numbness and tingling. There is no weakness on exam. There is no appreciable numbness on exam. No headache. No chest pain or dyspnea. EKG is sinus without definitive ischemic changes. Head CT negative for hemorrhagic stroke. Chest x-ray clear. Normal CBC, normal CMP, negative troponin. Patient's blood pressure is high she did take her losartan this morning. We discussed possibility of admission for further workup. Patient prefers discharge at this time with strict return parameters. She is informed of these return parameters and will follow closely with her primary care provider. She will monitor her blood pressure 3 times daily. Undiagnosed new problem with uncertain prognosis? @ -No Drug Therapy requiring intensive monitoring for toxicity (Heparin, Nitro, Insulin, Cardizem)? @ -No Were any procedures done? @ -No Diagnosis/symptom? @Hypertension, paresthesia Acute, or Chronic, or Acute on Chronic? @Acute Uncomplicated (without systemic symptoms) or Complicated (systemic symptoms)? @ -Default Side effects of treatment? @ -No Exacerbation, Progression, or Severe Exacerbation? @ -No Poses a threat to life or bodily function? How? (Chest pain, [place], [place], pneumonia, PE, COPD, DKA, ARF, appy, cholecystitis, CVA, Diverticulitis, Homicidal, Suicidal, threat to staff... and all critical care pts) @ -Low risk at this time - Lab Data Result diagrams: 02/05/24 09:40 02/05/24 09:40 Lab Results 02/05/24 02/05/24 02/05/24 Range/Units 09:40 09:40 09:40 WBC 7.5 (3.8-10.6) k/uL RBC 5.34 (3.80-5.40) m/uL Hgb 16.3 H (11.4-16.0) gm/dL Hct 48.5 H (34.0-46.0) % MCV 90.8 (80.0-100.0) fL MCH 30.5 (25.0-35.0) pg MCHC 33.6 (31.0-37.0) g/dL RDW 12.4 (11.5-15.5) % Plt Count 261 (150-450) k/uL MPV 7.1 Neutrophils % 75 % Lymphocytes % 16 % Monocytes % 6 % Eosinophils % 2 % Basophils % 0 % Neutrophils # 5.6 (1.3-7.7) k/uL Lymphocytes # 1.2 (1.0-4.8) k/uL Monocytes # 0.4 (0-1.0) k/uL Eosinophils # 0.1 (0-0.7) k/uL Basophils # 0.0 (0-0.2) k/uL PT 10.5 (10.0-12.5) sec INR 0.9 (<1.2) APTT 22.7 (22.0-30.0) sec Sodium 140 (137-145) mmol/L Potassium 4.3 (3.5-5.1) mmol/L Chloride 108 H (98-107) mmol/L Carbon Dioxide 24 (22-30) mmol/L Anion Gap 8 mmol/L BUN 15 (7-17) mg/dL Creatinine 0.84 (0.52-1.04) mg/dL Est GFR (CKD-EPI)AfAm 87 (>60 ml/min/1.73 sqM) Est GFR (CKD-EPI)NonAf 76 (>60 ml/min/1.73 sqM) Glucose 96 (74-99) mg/dL Calcium 10.1 (8.4-10.2) mg/dL Magnesium 2.2 (1.6-2.3) mg/dL Total Bilirubin 0.8 (0.2-1.3) mg/dL AST 26 (14-36) U/L ALT 23 (4-34) U/L Alkaline Phosphatase 63 (38-126) U/L Troponin I (0.000-0.034) ng/mL Total Protein 7.7 (6.3-8.2) g/dL Albumin 5.0 (3.5-5.0) g/dL 02/05/24 Range/Units 09:40 WBC (3.8-10.6) k/uL RBC (3.80-5.40) m/uL Hgb (11.4-16.0) gm/dL Hct (34.0-46.0) % MCV (80.0-100.0) fL MCH (25.0-35.0) pg MCHC (31.0-37.0) g/dL RDW (11.5-15.5) % Plt Count (150-450) k/uL MPV Neutrophils % % Lymphocytes % % Monocytes % % Eosinophils % % Basophils % % Neutrophils # (1.3-7.7) k/uL Lymphocytes # (1.0-4.8) k/uL Monocytes # (0-1.0) k/uL Eosinophils # (0-0.7) k/uL Basophils # (0-0.2) k/uL PT (10.0-12.5) sec INR (<1.2) APTT (22.0-30.0) sec Sodium (137-145) mmol/L Potassium (3.5-5.1) mmol/L Chloride (98-107) mmol/L Carbon Dioxide (22-30) mmol/L Anion Gap mmol/L BUN (7-17) mg/dL Creatinine (0.52-1.04) mg/dL Est GFR (CKD-EPI)AfAm (>60 ml/min/1.73 sqM) Est GFR (CKD-EPI)NonAf (>60 ml/min/1.73 sqM) Glucose (74-99) mg/dL Calcium (8.4-10.2) mg/dL Magnesium (1.6-2.3) mg/dL Total Bilirubin (0.2-1.3) mg/dL AST (14-36) U/L ALT (4-34) U/L Alkaline Phosphatase (38-126) U/L Troponin I <0.012 (0.000-0.034) ng/mL Total Protein (6.3-8.2) g/dL Albumin (3.5-5.0) g/dL Disposition Clinical Impression: Hypertension, Paresthesia Disposition: HOME SELF-CARE Condition: Fair Instructions (If sedation given, give patient instructions): Hypertension (ED), Paresthesia (ED) Is patient prescribed a controlled substance at d/c from ED?: No Referrals: José Luis Santos MD [Primary Care Provider] - 1-2 days Time of Disposition: 10:43
[2024-02-05 09:54] LABS: Basophils % (A) 0 %; Eosinophils # (A) 0.1 k/uL (0-0.7); Eosinophils % (A) 2 %; HCT 48.5 % (34.0-46.0); HGB 16.3 gm/dL (11.4-16.0); Lymphocytes # (A) 1.2 k/uL (1.0-4.8); Lymphocytes % (A) 16 %; MCH 30.5 pg (25.0-35.0); MCHC 33.6 g/dL (31.0-37.0); MCV 90.8 fL (80.0-100.0); Mean Platelet Volume 7.1; Monocytes # (A) 0.4 k/uL (0-1.0); Monocytes % (A) 6 %; Neutrophils # (A) 5.6 k/uL (1.3-7.7); Neutrophils % (A) 75 %; Platelet Count 261 k/uL (150-450); RBC 5.34 m/uL (3.80-5.40); RDW 12.4 % (11.5-15.5); WBC 7.5 k/uL (3.8-10.6)
--- NOTE | 2024-02-05 10:01 | CT ---
EXAMINATION TYPE: CT brain wo con DATE OF EXAM: 02/05/2024 COMPARISON: CLINICAL INDICATION: Female, 58 years old with history of left arm numbness; PH[facility], left arm numbness TECHNIQUE: CT scan of the head is performed without contrast. CT DLP: 1177.[address] CTDI: mGy Automated exposure control for dose reduction was used. FINDINGS: There is no acute intracranial hemorrhage or midline shift identified. There is diffuse v entricular and sulcal prominence consistent with diffuse age-related cerebral atrophy. There is low- attenuation in the periventricular white matter consistent with chronic small vessel ischemic change. The globes are intact and the visualized sinuses are clear. IMPRESSION: No acute intracranial hemorrhage or midline shift. There is diffuse age-related cerebra l atrophy and chronic small vessel ischemic change noted. [facility], , 02/05/2024 9:59 AM
[2024-02-05 10:11] LABS: ALT 23 U/L (4-34); AST 26 U/L (14-36); African American GFR (CKD) 87 (>60 ml/min/1.73 sqM); Alkaline Phosphatase 63 U/L (38-126); Anion Gap 8 mmol/L; Blood Urea Nitrogen 15 mg/dL (7-17); Calcium 10.1 mg/dL (8.4-10.2); Carbon Dioxide 24 mmol/L (22-30); Chloride 108 mmol/L (98-107); Glucose 96 mg/dL (74-99); Magnesium 2.2 mg/dL (1.6-2.3); Non-African American GFR(CKD) 76 (>60 ml/min/1.73 sqM); Potassium 4.3 mmol/L (3.5-5.1); Sodium 140 mmol/L (137-145); Total Bilirubin 0.8 mg/dL (0.2-1.3); Total Protein 7.7 g/dL (6.3-8.2)
[2024-02-05 10:13] LABS: INR 0.9 (<1.2); Partial Thromboplastin Time 22.7 sec (22.0-30.0); Prothrombin Time 10.5 sec (10.0-12.5)
--- NOTE | 2024-02-05 10:22 | XR ---
EXAMINATION TYPE: XR chest 2V DATE OF EXAM: 02/05/2024 9:53 AM COMPARISON: None CLINICAL INDICATION: Female, 58 years old with history of Chest Pain; TECHNIQUE: XR chest 2V Frontal and lateral views of the chest. FINDINGS: Lungs/Pleura: There is no evidence of pleural effusion, focal consolidation, or pneumothorax. Pulmonary vascularity: Unremarkable. Heart/mediastinum: Cardiomediastinal silhouette is unremarkable. Musculoskeletal: No acute osseous pathology. IMPRESSION: No acute cardiopulmonary disease/process. [facility], , 02/05/2024 10:20 AM
[2024-02-05 10:54] VITALS: BP 169/100; PULSE 77
== END 2024-02-05 10:55 | disposition home or self-care (01) ==
LOC: EC 09:09
DX: I11.9 Hypertensive heart disease without heart failure (principal); I25.10 Atherosclerotic heart disease of native coronary artery without angina pectoris; R20.2 Paresthesia of skin; Z88.8 Allergy status to other drugs, medicaments and biological substances
CPT/HCPCS: 36415; 70450; 71046; 80053; 83735; 84484; 85025; 85610; 85730; 93005; 99285

== ENCOUNTER → 2024-04-22 | Outpatient (CLI) | payer BC ==
--- NOTE | 2024-04-22 14:47 | MM ---
Reason for Exam: Screening (asymptomatic). Last mammogram was performed 1 year(s) and 1 month(s) ago. Patient History: Menarche at age 11. First Full-Term at age 17. Postmenopausal. Patient used Hormonal Contraceptives for 10 years. 2002, Reduction on the Right side. 2002, Reduction on the Left side. 12/22/2007, Benign Core Biopsy on the right side. Risk Values: Adelaide 5 year model risk: 1.2%. NCI Lifetime model risk: 6.3%. Prior Study Comparison: 09/22/2020 Bilateral Screening Mammogram, [facility]. 08/08/2021 Bilateral MG 3D diag mammo w/cad [facility]. 04/01/2023 Bilateral MG 3D screening mammo w/cad, [facility]. Tissue Density: There are scattered areas of fibroglandular density. Findings: Analyzed By CAD. Microclip anterior right breast from prior biopsy. Unchanged bilateral areas of asymmetric density. There is no suspicious group of microcalcifications or new suspicious mass in either breast. Overall Assessment: Benign, BI-RAD 2 Management: Screening Mammogram of both breasts in 1 year. . Patient should continue monthly self-breast exams. A clinical breast exam by your physician is recommended on an annual basis. This exam should not preclude additional follow-up of suspicious palpable abnormalities. Note on Adelaide scores and lifetime risk: 1. A Adelaide score greater than 3% is considered moderate risk. If this is the case, consider specialist referral to assess eligibility for a risk reducing agent. 2. If overall lifetime risk for the development of breast cancer is 20% or higher, the patient may qualify for future screening with alternating mammogram and breast MRI. [facility], , 04/22/2024 2:44 PM. Electronically signed and approved by: Dahlia Elliott M.D. Radiologist
== END | disposition home or self-care (01) ==
LOC: RADMAMWWP 08:38
PROVIDERS: ATTEND Family Medicine
DX: Z12.31 Encounter for screening mammogram for malignant neoplasm of breast (principal); R92.323 Mammographic fibroglandular density, bilateral breasts; Z78.0 Asymptomatic menopausal state; Z92.0 Personal history of contraception
CPT/HCPCS: 77063; 77067